=== PATIENT | female | born 1990 | race Caucasian/White ===

== ENCOUNTER 2021-10-15 15:13 | Emergency (ER) | payer OTHER ==
[~2021-10-15] VITALS: Ht 172.7 cm; Wt 107.9 kg
[2021-10-15] MEDS: ACETAMINOPHEN 500 MG TABLET PO ONE (20:47)
[2021-10-15 21:01] LABS: BILIRUBIN,URINE NEGATIVE (NEG); CLARITY,URINE CLEAR; COLOR,URINE YELLOW; NITRITE,URINE NEGATIVE (NEG); PH,URINE 5.5 (<5.0-8.0); PROTEIN,URINE NEGATIVE (NEG-TRACE); UROBILINOGEN,URINE 0.2 mg/dL (0.2 mg/dL)
--- NOTE | 2021-10-15 21:01 | RAD ---
EXAM: OBSTETRIC ULTRASOUND, <14 WEEKS. HISTORY: Vaginal bleeding in . COMPARISON: None. FINDINGS: Sonographic evaluation of the pelvis was performed transabdominally and transvaginally. The uterus is anteverted and measures 7.5 x 3.9 x 3.6 cm. No intrauterine gestation is identified. The right ovary measures 2.2 x 1.6 x 1.3 cm. The left ovary measures 2.7 x 1.5 x 1.3 cm. Or dominant follicle on the left may reflect a corpus luteum and measures 1.5 x 1.3 cm. There is normal Doppler f low bilaterally. There is no adnexal mass. There is a small amount of free fluid. IMPRESSION: 1. No intrauterine gestation is identified. Possible corpus luteum on the left. Recommend ongoing fol low-up of quantitative beta hCG to exclude an early or ectopic gestation. Electronically signed by: Na Juarez MD (10/15/2021 8:59 PM) [facility]
[2021-10-15 21:13] LABS: BASO % 0 % (0-3); EOS # 0.1 x10^3/uL (0.0-0.7); EOS % 1 % (0-3); HEMATOCRIT 38.3 % (36.0-47.0); HEMOGLOBIN 13.2 g/dL (12.0-15.5); LYMPH # 3.3 x10^3/uL (1.0-4.8); LYMPH % 35 % (24-48); MEAN CORPUSCULAR HEMOGLOBIN 29 pg (25-35); MEAN CORPUSCULAR HGB CONC 34 g/dL (31-37); MEAN CORPUSCULAR VOLUME 85 fL (79-100); MONO # 0.5 x10^3/uL (0.0-1.1); MONO % 5 % (0-9); NEUT # 5.3 x10^3/uL (1.8-7.7); NEUT % 58 % (31-73); PLATELET COUNT 378 x10^3/uL (140-400); RED CELL DISTRIBUTION WIDTH 13.1 % (11.5-14.5); WHITE BLOOD COUNT 9.3 x10^3/uL (4.0-11.0)
[2021-10-15 21:15] LABS: BACTERIA,URINE 0 /HPF (0-FEW)
[2021-10-15 21:18] LABS: AMORPHOUS SEDIMENT,UR PRESENT /HPF
[2021-10-15 21:21] LABS: CALCIUM 8.7 mg/dL (8.5-10.1); CREATININE 0.8 mg/dL (0.6-1.0); GFR 84.2; POTASSIUM 3.7 mmol/L (3.5-5.1)
[2021-10-15 21:27] LABS: ALBUMIN 3.7 g/dL (3.4-5.0); ALBUMIN/GLOBULIN RATIO 0.9 (1.0-1.7); TOTAL BILIRUBIN 0.5 mg/dL (0.2-1.0)
[2021-10-15 21:52] VITALS: BP 121/63
--- NOTE | 2021-10-15 22:12 | PHYS DOC ---
Past Medical History Past Surgical History: No Surgical History (NORMA KELLER MANAGER [employer]ANGE) Smoking Status: Former Smoker Alcohol Use: None (NORMA KELLER MANAGER OF [employer]ANGE) General Adult EDM: Chief Complaint: VAGINAL BLEEDING HPI: HPI: Patient is a 31 year old female 1 para 0 currently 1 month presented to the ED today complaining of vaginal bleeding in that began yesterday as spotting and now has increased to using 3 pads a day. Patient states she is in a lesbian relationship, they did not do IVF. They used a donor sperm. She is complaining of low abdominal cramping, denies any nausea, vom iting, back pain. She states she has done more than 2 tests at home and they are all positive (NORMA KELLER MANAGER OF CHANGE) Review of Systems: Review of Systems: Constitutional: Denies fever or chills. [] Eyes: Denies change in visual acuity. [] HENT: Denies nasal congestion or sore throat. [] Respiratory: Denies cough or shortness of breath. [] Cardiovascular: Denies chest pain or edema. [] GI: Reports vaginal bleeding in with abdominal cramping, denies nausea, vomiting, bloody stools or diarrhea. [] : Denies dysuria. [] Musculoskeletal: Denies back pain or joint pain. [] Integument: Denies rash. [] Neurologic: Denies headache, focal weakness or sensory changes. [] Psychiatric: Denies depression or anxiety. [] (NORMA KELLER MANAGER OF [employer]ANGE) Heart Score: C/O Chest Pain: N/A Risk Factors: Risk Factors: DM, Current or recent (<one month) smoker, HTN, HLP, family history of CAD, obesity. Risk Scores: Score 0 - 3: 2.5% MACE over next 6 weeks - Discharge Home Score 4 - 6: 20.3% MACE over next 6 weeks - Admit for Clinical Observation Score 7 - 10: 72.7% MACE over next 6 weeks - Early Invasive Strategies (NORMA KELLER MANAGER OF [employer]ANGE) Current Medications: Current Medications Medications (Trade) Dose Ordered Sig/Clarisa Start Time Stop Time Status Last Admin Dose Admin Acetaminophen (Tylenol) 1,000 mg 1X ONCE 10/15/21 20:30 10/15/21 20:33 DC 10/15/21 20:47 1,000 MG (NORMA KELLER [employer]GER [employer]) Allergies: Allergies: Allergies Coded Allergies Type Severity Reaction Last Updated Verified No Known Drug Allergies 10/15/21 No (NORMA KELLER MANAGER [employer]ANGE) Physical Exam: PE: Constitutional: Well developed, well nourished, no acute distress, non-toxic appearance. [] HENT: Normocephalic, atraumatic, bilateral external ears normal, oropharynx moist, no oral exudates, nose normal. [] Eyes: PERRLA, EOMI, conjunctiva normal, no discharge. [] Neck: Normal range of motion, no tenderness, supple, no stridor. [] Cardiovascular:Heart rate regular rhythm, no murmur [] Lungs & Thorax: Bilateral breath sounds clear to auscultation [] Abdomen: Bowel sounds normal, soft, no tenderness, no masses, no pulsatile masses. [] Pelvic exam External pelvic appearance normal, cervix visualized, appears closed, no CMT, no adnexal tenderness, trace amount of bright red blood in the vaginal vault Skin: Warm, dry, no erythema, no rash. [] Back: No tenderness, no CVA tenderness. [] Extremities: No tenderness, no cyanosis, no clubbing, ROM intact, no edema. [] Neurologic: Alert and oriented X 3, normal motor function, normal sensory function, no focal deficits noted. [] Psychologic: Affect normal, judgement normal, mood normal. [] (NORMA KELLER MANAGER OF [employer]ANGE) Current Patient Data: Labs: Laboratory Tests Test 10/15/21 20:50 10/15/21 20:58 White Blood Count 9.3 x10^3/uL (4.0-11.0) Red Blood Count 4.50 x10^6/uL (3.50-5.40) Hemoglobin 13.2 g/dL (12.0-15.5) Hematocrit 38.3 % (36.0-47.0) Mean Corpuscular Volume 85 fL (79-100) Mean Corpuscular Hemoglobin 29 pg (25-35) Mean Corpuscular Hemoglobin Concent 34 g/dL (31-37) Red Cell Distribution Width 13.1 % (11.5-14.5) Platelet Count 378 x10^3/uL (140-400) Neutrophils (%) (Auto) 58 % (31-73) Lymphocytes (%) (Auto) 35 % (24-48) Monocytes (%) (Auto) 5 % (0-9) Eosinophils (%) (Auto) 1 % (0-3) Basophils (%) (Auto) 0 % (0-3) Neutrophils # (Auto) 5.3 x10^3/uL (1.8-7.7) Lymphocytes # (Auto) 3.3 x10^3/uL (1.0-4.8) Monocytes # (Auto) 0.5 x10^3/uL (0.0-1.1) Eosinophils # (Auto) 0.1 x10^3/uL (0.0-0.7) Basophils # (Auto) 0.0 x10^3/uL (0.0-0.2) Urine Collection Type Unknown Urine Color Yellow Urine Clarity Clear Urine pH 5.5 (<5.0-8.0) Urine Specific [place] 1.020 (1.000-1.030) Urine Protein Negative mg/dL (NEG-TRACE) Urine Glucose (UA) Negative mg/dL (NEG) Urine Ketones (Stick) Negative mg/dL (NEG) Urine Blood Large (NEG) Urine Nitrite Negative (NEG) Urine Bilirubin Negative (NEG) Urine Urobilinogen Dipstick 0.2 mg/dL (0.2 mg/dL) Urine Leukocyte Esterase Negative (NEG) Urine RBC 6-10 /HPF (0-2) Urine WBC 5-10 /HPF (0-4) Urine Squamous Epithelial Cells Many /LPF Urine Transitional Epithelial Cells Occ /LPF Urine Renal Epithelial Cells Occ /LPF Urine Amorphous Sediment Present /HPF Urine Bacteria 0 /HPF (0-FEW) Urine Mucus Marked /LPF Maternal Serum HCG Beta Subunit 19 mIU/mL (0-5) H Sodium Level 138 mmol/L (136-145) Potassium Level 3.7 mmol/L (3.5-5.1) Chloride Level 102 mmol/L (98-107) Carbon Dioxide Level 27 mmol/L (21-32) Anion Gap 9 (6-14) Blood Urea Nitrogen 11 mg/dL (7-20) Creatinine 0.8 mg/dL (0.6-1.0) Estimated GFR (Cockcroft-Gault) 84.2 BUN/Creatinine Ratio 14 (6-20) Glucose Level 85 mg/dL (70-99) Calcium Level 8.7 mg/dL (8.5-10.1) Total Bilirubin 0.5 mg/dL (0.2-1.0) Aspartate Amino Transferase (AST) 14 U/L (15-37) L Alanine Aminotransferase (ALT) 28 U/L (14-59) Alkaline Phosphatase 98 U/L (46-116) Total Protein 8.0 g/dL (6.4-8.2) Albumin 3.7 g/dL (3.4-5.0) Albumin/Globulin Ratio 0.9 (1.0-1.7) L POC Urine HCG, Qualitative Hcg negative (Negative) Laboratory Tests 10/15/21 20:50 Laboratory Tests 10/15/21 20:50 Microbiology 10/15/21 Wet Prep - Final, Complete Vital Signs: Vital Signs Date Time Temp Pulse Resp B/P (MAP) Pulse Ox O2 Delivery O2 Flow Rate FiO2 10/15/21 15:38 98.1 73 12 119/65 (83) 98 Room Air 98.1 (NORMA KELLER APRN) EKG: EKG: [] (NORMA KELLER APRN) Radiology/Procedures: Radiology/Procedures: []PROCEDURE: OB TRANSVAG EXAM: OBSTETRIC ULTRASOUND, <14 WEEKS. HISTORY: Vaginal bleeding in . COMPARISON: None. FINDINGS: Sonographic evaluation of the pelvis was performed transabdominally and transvaginally. The uterus is anteverted and measures 7.5 x 3.9 x 3.6 cm. No intrauterine gestation is identified. The right ovary measures 2.2 x 1.6 x 1.3 cm. The left ovary measures 2.7 x 1.5 x 1.3 cm. Or dominant follicle on the left may reflect a corpus luteum and measures 1.5 x 1.3 cm. There is normal Doppler flow bilaterally. There is no adnexal mass. There is a small amount of free fluid. IMPRESSION: 1. No intrauterine gestation is identified. Possible corpus luteum on the left. Recommend ongoing follow-up of quantitative beta hCG to exclude an early or ectopic gestation. Electronically signed by: Na Juarez MD (10/15/2021 8:59 PM) [facility] DICTATED and SIGNED BY: NIKHIL JUAREZ MD DATE: 10/15/[id number] 0 (NORMA KELLER APRN) Course & Med Decision Making: Course & Med Decision Making Pertinent Labs and Imaging studies reviewed. (See chart for details) This is a 31-year-old female patient presented to the ED today with vaginal bleeding in . She is a 1 para 0. Negative urine hCG, beta hCG 19. OB ultrasound no intrauterine gestation is identified. Possible corpus luteum on the left. Recommend ongoing follow-up of quantitative beta hCG to exclude an early or ectopic gestation. CBC, CMP with no acute findings, UA negative for infection Blood group B+ Patient was discharged to follow-up with OB in the next 1 to 2 days for beta-hCG repeat. Instructed to maintain bedrest/pelvic rest. Provided return precautions. (NORMA KELLER APRN) Dragon Disclaimer: Dragon Disclaimer: This electronic medical record was generated, in whole or in part, using a voice recognition dictation system. (NORMA KELLER APRN) Departure Departure Impression: Primary Impression: Threatened miscarriage in early Disposition: 01 HOME / SELF CARE / HOMELESS Condition: STABLE Referrals: NO PCP (PCP) follow up with your OBGYN in 2 days for beta hcg Patient Instructions: Threatened Miscarriage, [id number] Additional Instructions: You were evaluated in the emergency room for vaginal bleeding in , your beta-hCG is 19. Your OB ultrasound could not find an intrauterine though this could be very early . We highly encourage you to follow-up with your [facility], contact the office tomorrow morning and set up a follow-up appointment for repeat beta-hCG. They can trend this number and see if it is going up or down. Please maintain pelvic rest, no intercourse, no strenuous activities. Attending Signature Attending Signature I have reviewed the PA/CHEMICAL DEPENDENCY THERAPIST's note and plan of care. I was available for consultation as needed during the patient's visit in the emergency department. I agree with the clinical impression, plan, and disposition. (TINY MCFARLAND DO) NORMA KELLER APRN Oct 15, 2021 22:12 TINY MCFARLAND DO Oct 16, 2021 20:23
[2021-10-17 18:12] LABS: GC PROBE Negative (Negative)
== END 2021-10-15 22:15 | disposition home or self-care (01) ==
LOC: ER 15:13
DX: O20.0 Threatened abortion (principal); Z3A.01 Less than 8 weeks gestation of pregnancy; Z87.891 Personal history of nicotine dependence
CPT/HCPCS: 36415; 76817; 80053; 81001; 81025; 84702; 85025; 86850; 86900; 86901; 87086; 87491; 87591; 99284; Q0111